=== PATIENT | female | born 1975 | race Caucasian/White ===

== ENCOUNTER 2025-01-17 13:22 | Emergency (ER) | payer OTHER, SELFPAY ==
[2025-01-17 13:28] VITALS: BP 104/70; PULSE 71; RESP 14; TEMP 36.6; O2SAT 100
[2025-01-17 14:14] VITALS: BP 111/77; PULSE 76; RESP 18; O2SAT 99
--- NOTE | 2025-01-17 14:22 | ED.GENADULT ---
HPI - General Adult General Chief complaint: Skin/Abscess/Foreign Body Stated complaint: nose skin rash, redness, swelling Time Seen by Provider: 01/17/25 14:18 History of Present Illness HPI narrative: This is a 49-year-old female presenting with a itchy rash over her face. On January 06 she had a skin blemish removed with liquid nitrogen by her repair servicer. On the she went [place]. On the she was out doing gardening with her she developed itching around wound on her nose as well as raised papules on the face with a gold crust. She also has itching around her eyes. She is concerned that she may have an infection. She does not have any fevers chills nausea vomiting or diarrhea. No other symptoms. She has not been able to get although the repair servicer as it is a Saturday. Exam Narrative: APPEARANCE: No apparent distress. Head: atraumatic. EYES: EOMI, NOSE: Wound in the center of her nose with a black eschar, around the wound there is raised mildly erythematous skin with some scant honey-colored discharge. NECK: Trachea midline RESPIRATORY: No increased rate of breathing CARDIOVASCULAR: RRR, ABDOMINAL: Non-distended MUSCULOSKELETAl: No obvious deformities NEURO: Alert. Moving 4/4 extremities SKIN:: Warm, dry. Normal color PSYCHIATRIC: Normal affect Course Vital Signs Vital signs: Vital Signs Temperature 97.9 F 01/17/25 13:28 Pulse Rate 71 01/17/25 13:28 Respiratory Rate 14 01/17/25 13:28 Blood Pressure 104/70 01/17/25 13:28 Pulse Oximetry 100 01/17/25 13:28 Oxygen Delivery Room Air 01/17/25 13:28 Temperature 97.9 F 01/17/25 13:28 Pulse Rate 76 01/17/25 14:14 Respiratory Rate 18 01/17/25 14:14 Blood Pressure 111/77 01/17/25 14:14 Pulse Oximetry 99 01/17/25 14:14 Oxygen Delivery Room Air 01/17/25 14:14 Medical Decision Making MDM Narrative Medical decision making narrative: -Course: 49-year-old female presenting with a rash around her nose. Unclear if this is impetigo, versus all allergies either from her gardening or possibly the bandage that she has had on it. It does not look like ammy cellulitis. She will be treated with short course of mupirocin and is requesting shot of steroids which can be provided. She has been encouraged to call her repair servicer tomorrow morning as they will be able to give her a more definitive answer. Patient okay with plan. Discharged. -DDX includes but is not limited to: Allergic reaction, impetigo, dermatitis Vital Signs Vital Signs: Vital Signs Temperature 97.9 F 01/17/25 13:28 Pulse Rate 71 01/17/25 13:28 Respiratory Rate 14 01/17/25 13:28 Blood Pressure 104/70 01/17/25 13:28 Pulse Oximetry 100 01/17/25 13:28 Oxygen Delivery Room Air 01/17/25 13:28 Temperature 97.9 F 01/17/25 13:28 Pulse Rate 76 01/17/25 14:14 Respiratory Rate 18 01/17/25 14:14 Blood Pressure 111/77 01/17/25 14:14 Pulse Oximetry 99 01/17/25 14:14 Oxygen Delivery Room Air 01/17/25 14:14 Discharge Plan Discharge Clinical Impression: Dermatitis, Impetigo Patient Disposition: Home Condition: Stable Instructions: Antibiotic Form, Impetigo (DC) Additional Instructions: Please use mupirocin ointment on her face and that he see dermatology. You can use Zyrtec or Benadryl for itching. Return if you develop severe pain erythema or any worsening symptoms. Patient Language: Bulgarian Prescriptions: New mupirocin [Centany] 2 % ointment 1 applic topical BID Qty: 15 0RF Follow-up/Referrals: Trent,Dillan Valente MD [Primary Care Provider] -
[2025-01-17] MEDS: dexAMETHasone SOD PHOS INJ 10 MG/ML 1 ML VIAL IM (14:48)
== END 2025-01-17 14:56 | disposition home or self-care (01) ==
PROVIDERS: Emergency Provider Emergency Medicine; PCP Internal Medicine
DX: L30.9 Dermatitis, unspecified (principal); L01.00 Impetigo, unspecified
CPT/HCPCS: 96372; 99283; J1100